=== PATIENT | female | born 1980 | race Caucasian/White ===

== ENCOUNTER 2016-10-05 00:21 | Emergency (ER) | payer OTHER ==
[2016-10-05 00:36] VITALS: BP 142/90
[2016-10-05] MEDS ORDERED: Clindamycin CAP* 150 MG PO ONE (00:52)
[2016-10-05] MEDS ORDERED: HYDROcodone/ACETAMIN 5-325 MG* 1 TAB PO ONE (00:53)
[2016-10-05] MEDS ORDERED: Lidocaine 2% JELLY* 10 ML JELLY TOPICAL ONE (00:54)
--- NOTE | 2016-10-05 01:01 | ED ---
Wong Monsivais Benjamin, scribed for Yulia Lott MD on 10/05/16 at 0049 . Throat Pain/Nasal Congestion - HPI Summary HPI Summary: 35yo female c/o left lip pain and swelling. Pt states its eating my face. Pt describes that there is an abscess in his left inner mouth. Pt denies any dental pain. Hx includes epilepsy, chronic migraines, and FHx of migraines. - History of Current Complaint Chief Complaint: EDRashSkinAbscess Time Seen by Provider: 10/05/16 00:38 Hx Obtained From: Patient Onset/Duration: Sudden Onset, Lasting Hours - 1 hour, Still Present Severity: Moderate Associated Signs And Symptoms: Positive: Negative - Allergies/Home Medications Allergies/Adverse Reactions: Allergies Allergy/AdvReac Type Severity Reaction Status Date / Time msg Allergy Headache Uncoded 02/22/15 18:40 PMH/Surg Hx/FS Hx/Imm Hx Endocrine/Hematology History: Denies: Hx Diabetes, Hx Thyroid Disease Cardiovascular History: Reports: Other Cardiovascular Problems/Disorders - HEART MURMUR Denies: Hx Congestive Heart Failure, Hx Hypertension Respiratory History: Denies: Hx Asthma, Hx Chronic Obstructive Pulmonary Disease (COPD) GI History: Denies: Hx Ulcer History: Denies: Hx Renal Disease Neurological History: Reports: Hx Migraine, Hx Seizures Psychiatric History: Reports: Hx Depression - Surgical History Surgery Procedure, Year, and Place: Removed a pin from throat. Infectious Disease History: No Infectious Disease History: Denies: Hx Clostridium Difficile, Hx Hepatitis, Hx Human Immunodeficiency Virus (HIV), Hx of Known/Suspected MRSA, Hx Shingles, Hx Tuberculosis, Hx Known/ Suspected VRE, Hx Known/Suspected VRSA, History Other Infectious Disease, Traveled Outside the [place] in Last 30 Days - Family History Known Family History: Positive: Cardiac Disease, Other - migrianes - Social History Occupation: Employed Full-time Lives: With Family Alcohol Use: Weekly Alcohol Amount: weekends Substance Use Type: Reports: Marijuana Substance Use Comment - Amount & Last Used: WEEKENDS Smoking Status (MU): Light Every Day Tobacco Smoker Type: Cigarettes Amount Used/How Often: 1/4 ppd Length of Time of Smoking/Using Tobacco: 10 years Have You Smoked in the Last Year: Yes Review of Systems Constitutional: Negative Eyes: Negative ENT: Other - lip pain and swelling Negative: Dental Pain Cardiovascular: Negative Respiratory: Negative Gastrointestinal: Negative Genitourinary: Negative Musculoskeletal: Negative Skin: Negative Neurological: Negative Psychological: Normal All Other Systems Reviewed And Are Negative: Yes Physical Exam Triage Information Reviewed: Yes Vital Signs On Initial Exam: Initial Vitals Temp Pulse Resp BP Pulse Ox 100.6 F 93 20 142/90 99 10/05/16 00:25 10/05/16 00:25 10/05/16 00:25 10/05/16 00:25 10/05/16 00:25 Vital Signs Reviewed: Yes Appearance: Positive: Well-Appearing, No Pain Distress, Well-Nourished Skin: Positive: Warm, Skin Color Reflects Adequate Perfusion, Dry Head/Face: Positive: Normal Head/Face Inspection Eyes: Positive: EOMI, INGRID ENT: Positive: Hearing grossly normal, Pharynx normal, TMs normal Neck: Positive: Supple, Nontender Respiratory/Lung Sounds: Positive: Clear to Auscultation, Breath Sounds Present. Negative: Rales, Rhonchi, Wheezes Cardiovascular: Positive: RRR. Negative: Murmur, Rub Abdomen Description: Positive: Nontender, Soft. Negative: Distended, Guarding Bowel Sounds: Positive: Present Musculoskeletal: Positive: Strength/ROM Intact. Negative: Edema Left, Edema Right Neurological: Positive: Sensory/Motor Intact, Alert, Oriented to Person Place, Time, CN Intact II-III Psychiatric: Positive: Affect/Mood Appropriate Diagnostics - Vital Signs Vital Signs Temp Pulse Resp BP Pulse Ox 10/05/16 00:25 100.6 F 93 20 142/90 99 - Laboratory Lab Statement: Any lab studies that have been ordered have been reviewed, and results considered in the medical decision making process. EENT Course/Dx - Course Assessment/Plan: 35 yo female with mild edema at corner of mouth with slight induration of about 2cm in circumference at this corner. No involvement of gums or oropharynx. Started clinda and gave her pain meds - Diagnoses Provider Diagnoses: Cellulitis Discharge - Discharge Plan Condition: Stable Disposition: HOME Prescriptions: Clindamycin CAP* [Cleocin 150 MG CAP*] 300 mg PO QID #26 cap Referrals: Freddie Freedman MD [Primary Care Provider] - The documentation as recorded by the Wong burnett Benjamin accurately reflects the service I personally performed and the decisions made by , Yulia Lott MD.
[2016-10-05] MEDS ORDERED: Lidocaine 2% JELLY* 6 ML JELLY TOPICAL ONE (01:03)
--- NOTE | 2016-10-05 09:40 | PN ---
Progress Note - Progress Note Note: Pharmacy called provider to double check on correct dosage of Clindamycin. Provider looked at documented note and Rx - written on explanation : prescription written for 300mg 4x daily until done. However, prescribed dosing was 150mg. Provider cancelled first order and re-ordered with correct mg and dosage following Dr. Lott's order.
== END 2016-10-05 01:14 | disposition home or self-care (01) ==
LOC: ED 00:21
DX: L03.211 Cellulitis of face (principal); F17.210 Nicotine dependence, cigarettes, uncomplicated; R01.1 Cardiac murmur, unspecified
CPT/HCPCS: 87070; 87205; 99282; A9270-GY

== ENCOUNTER 2016-12-05 12:07 | Emergency (ER) | payer OTHER ==
[2016-12-05] MEDS ORDERED: Aspirin Low Dose CHEW TAB* 81 MG PO ONE (15:27)
[2016-12-05 16:03] LABS: Hematocrit 41 % (35-47); Hemoglobin 13.7 g/dl (12.0-16.0); Mean Corpuscular HGB Conc 34 g/dl (31-36); Mean Corpuscular Hemoglobin 30 pg (27-31); Mean Corpuscular Volume 88 fL (80-97); Mean Platelet Volume 12 um3 (7.4-10.4); Red Blood Count 4.64 10^6/ul (4.0-5.4); Red Cell Distribution Width 13 % (10.5-15); White Blood Count 7.4 10^3/ul (3.5-10.8)
[2016-12-05 16:04] LABS: Add Diff/Slide Review? Slide Review Added; Comments Flag Yes
[2016-12-05 16:15] LABS: ALT 10 U/L (7-52); AST 14 U/L (13-39); Albumin 4.5 g/dL (3.2-5.2); Alkaline Phosphatase 47 U/L (34-104); Anion Gap 10 mmol/L (2-11); BUN/Creatinine Ratio 15.1 (8-20); Blood Urea Nitrogen 11 mg/dL (6-24); CO2 Carbon Dioxide 26 mmol/L (22-32); Calcium 9.4 mg/dL (8.6-10.3); Chloride 103 mmol/L (101-111); Creatine Kinase 73 U/L (10-223); EGFR African American 115.4 (>60); EGFR Non-African American 89.7 (>60); Globulin 2.3 g/dL (2-4); Glucose 78 mg/dL (70-100); Potassium 3.8 mmol/L (3.5-5.0); Sodium 139 mmol/L (133-145); Total Protein 6.8 g/dL (6.4-8.9)
[2016-12-05 16:45] LABS: TSH (Thyroid Stimulating Horm) 1.18 mcIU/mL (0.34-5.60)
[2016-12-05 16:51] LABS: Magnesium 2.2 mg/dL (1.9-2.7)
--- NOTE | 2016-12-05 16:51 | ED ---
HPI Chest Pain - HPI Summary HPI Summary: Patient arrives to ED with CC of left sided chest pain present while laying on left side. The pain is a stabbing, not worse with inspiration and intermittent. She admits to shoveling snow for several hours yesterday, but did not feel any discomfort yesterday. Today, she notes pain is 7/10 and is located under her left breast. Pain does not radiates. She denies back pain, abd pain , urinary symptoms, LONGORIA, diaphoresis or fever. Patient denies recent travel, OCP use, smoking history and is not immunocompromised. Denies family cardiac history. Pain is worse with laying down, better with sitting upright and not correlated with activity or exertion. Denies leg pain. - History of Current Complaint Chief Complaint: EDChestPainROMI Time Seen by Provider: 12/05/16 15:01 Hx Obtained From: Patient Onset/Duration: Started Hours Ago Timing: Intermittent Initial Severity: Moderate Current Severity: Moderate Pain Intensity: 2 Pain Scale Used: 0-10 Numeric Chest Pain Location: Left Anterior, Left Lateral Chest Pain Radiates: No Character: Crushing, Sharp/Stabbing Aggravating Factor(s): Position Alleviating Factor(s): Position Associated Signs and Symptoms: Positive: Chest Pain - Risk Factors Pulmonary Embolism Risk Factors: Negative TAD Risk Factors: Negative - Allergy/Home Medications Allergies/Adverse Reactions: Allergies Allergy/AdvReac Type Severity Reaction Status Date / Time msg Allergy Headache Uncoded 12/05/16 12:11 PMH/Surg Hx/FS Hx/Imm Hx Previously Healthy: Yes Endocrine/Hematology History: Denies: Hx Diabetes, Hx Thyroid Disease Cardiovascular History: Reports: Other Cardiovascular Problems/Disorders - HEART MURMUR Denies: Hx Congestive Heart Failure, Hx Hypertension Respiratory History: Denies: Hx Asthma, Hx Chronic Obstructive Pulmonary Disease (COPD) GI History: Denies: Hx Ulcer History: Denies: Hx Renal Disease Neurological History: Reports: Hx Migraine, Hx Seizures Psychiatric History: Reports: Hx Depression - Surgical History Surgery Procedure, Year, and Place: Removed a pin from throat. Infectious Disease History: No Infectious Disease History: Denies: Hx Clostridium Difficile, Hx Hepatitis, Hx Human Immunodeficiency Virus (HIV), Hx of Known/Suspected MRSA, Hx Shingles, Hx Tuberculosis, Hx Known/ Suspected VRE, Hx Known/Suspected VRSA, History Other Infectious Disease, Traveled Outside the [place] in Last 30 Days - Family History Known Family History: Positive: Cardiac Disease, Other - migrianes - Social History Occupation: Employed Full-time Lives: With Family Alcohol Use: Weekly Alcohol Amount: weekends Hx Substance Use: Yes Substance Use Type: Reports: Marijuana Substance Use Comment - Amount & Last Used: WEEKENDS Smoking Status (MU): Light Every Day Tobacco Smoker Type: Cigarettes Amount Used/How Often: 1/4 ppd Length of Time of Smoking/Using Tobacco: 10 years Have You Smoked in the Last Year: Yes Review of Systems Constitutional: Negative ENT: Negative Positive: Chest Pain - left sided anterior and lateral chest pain Respiratory: Negative Positive: no symptoms reported, see HPI Musculoskeletal: Negative Skin: Negative Neurological: Negative Psychological: Normal All Other Systems Reviewed And Are Negative: Yes Physical Exam Triage Information Reviewed: Yes Vital Signs On Initial Exam: Initial Vitals Temp Pulse Resp BP Pulse Ox 98.6 F 97 18 123/94 100 12/05/16 12:11 12/05/16 12:11 12/05/16 12:11 12/05/16 12:11 12/05/16 12:11 Vital Signs Reviewed: Yes Appearance: Positive: Well-Appearing, Well-Nourished Skin: Positive: Warm, Skin Color Reflects Adequate Perfusion Head/Face: Positive: Normal Head/Face Inspection Eyes: Positive: INGRID, Conjunctiva Clear Neck: Positive: Supple, No Lymphadenopathy Respiratory/Lung Sounds: Positive: Clear to Auscultation, Breath Sounds Present Cardiovascular: Positive: Normal, RRR Abdomen Description: Positive: Nontender Musculoskeletal: Positive: Normal, Strength/ROM Intact Neurological: Positive: Sensory/Motor Intact, Alert, Oriented to Person Place, Time Psychiatric: Positive: Normal AVPU Assessment: Alert Diagnostics - Vital Signs Vital Signs Temp Pulse Resp BP Pulse Ox 12/05/16 16:30 62 18 120/72 100 12/05/16 16:00 69 16 122/71 99 12/05/16 15:30 66 13 124/75 99 12/05/16 15:26 81 21 104/58 100 12/05/16 15:10 64 12/05/16 15:04 13 12/05/16 14:02 98.6 F 75 18 132/75 100 12/05/16 12:11 98.6 F 97 18 123/94 100 - Laboratory Lab Results: Lab Results 12/05/16 12/05/16 12/05/16 Range/Units 15:47 15:47 15:47 WBC 7.4 (3.5-10.8) 10^3/ul RBC 4.64 (4.0-5.4) 10^6/ul Hgb 13.7 (12.0-16.0) g/dl Hct 41 (35-47) % MCV 88 (80-97) fL MCH 30 (27-31) pg MCHC 34 (31-36) g/dl RDW 13 (10.5-15) % Plt Count 142 L (150-450) 10^3/ul MPV 12 H (7.4-10.4) um3 Neut % (Auto) 70.2 (38-83) % Lymph % (Auto) 22.1 L (25-47) % Hart % (Auto) 6.1 (1-9) % Eos % (Auto) 1.0 (0-6) % Baso % (Auto) 0.6 (0-2) % Absolute Neuts (auto) 5.2 (1.5-7.7) 10^3/ul Absolute Lymphs (auto) 1.6 (1.0-4.8) 10^3/ul Absolute Monos (auto) 0.4 (0-0.8) 10^3/ul Absolute Eos (auto) 0.1 (0-0.6) 10^3/ul Absolute Basos (auto) 0 (0-0.2) 10^3/ul Absolute Nucleated RBC 0.01 10^3/ul Nucleated RBC % 0.1 INR (Anticoag Therapy) 0.99 (0.89-1.11) APTT Pending Sodium 139 (133-145) mmol/L Potassium 3.8 (3.5-5.0) mmol/L Chloride 103 (101-111) mmol/L Carbon Dioxide 26 (22-32) mmol/L Anion Gap 10 (2-11) mmol/L BUN 11 (6-24) mg/dL Creatinine 0.73 (0.51-0.95) mg/dL Est GFR ( Amer) 115.4 (>60) Est GFR (Non-Af Amer) 89.7 (>60) BUN/Creatinine Ratio 15.1 (8-20) Glucose 78 (70-100) mg/dL Calcium 9.4 (8.6-10.3) mg/dL Magnesium Pending Total Bilirubin 0.50 (0.2-1.0) mg/dL AST 14 (13-39) U/L ALT 10 (7-52) U/L Alkaline Phosphatase 47 (34-104) U/L Total Creatine Kinase 73 (10-223) U/L CK-MB (CK-2) Pending Myoglobin Pending Troponin I 0.00 (<0.04) ng/mL Total Protein 6.8 (6.4-8.9) g/dL Albumin 4.5 (3.2-5.2) g/dL Globulin 2.3 (2-4) g/dL Albumin/Globulin Ratio 2.0 (1-3) TSH 1.18 (0.34-5.60) mcIU/mL Result Diagrams: 12/05/16 15:47 12/05/16 15:47 Lab Statement: Any lab studies that have been ordered have been reviewed, and results considered in the medical decision making process. Chest Pain Course/Dx - Course Course Of Treatment: Chest pain on left anterior and lateral side. Wells criteria low suspcian for PE. 0.13% chance. Not worse with inspiration. Afebrile. HR 70. Patient denies OCP use, travel, leg pain, smoking history or immunocompromised status. Trop negative. Chest xray negative. Labs WNL. Patient given Tylenol for relief of pain. test negative. Patient discharged home with return precautions. Ibuprofen as needed for any pain and inflammation. - Chest Pain Differential Diagnosis/HQI/PQRI: Acute NM, ACS, Angina, Chest Wall, Pulmonary Embolism - Diagnoses Provider Diagnoses: Costochondritis Discharge - Discharge Plan Condition: Stable Disposition: HOME Prescriptions: Meclizine TAB* [Antivert 12.5 TAB*] 12.5 mg PO TID #15 tab MDD 3 Patient Education Materials: Costochondritis (ED) Referrals: Freddie Freedman MD [Primary Care Provider] - Additional Instructions: Ibuprofen 600mg three times daily as needed for pain. Come back to ED if you develop racing heart, fever, worsening pain, shortness of breath.
[2016-12-05 18:15] VITALS: BP 115/61
--- NOTE | 2016-12-05 18:31 | RAD ---
Indication: Chest pain. Single frontal view of the chest performed at 1730 hours was reviewed. Comparison is made with previous exam dated June 24, 2013. No mediastinal shift is noted. Heart is of normal size and configuration. Lung lee appear clear. IMPRESSION: NO ACTIVE CARDIOPULMONARY DISEASE IS NOTED.
== END 2016-12-05 18:17 | disposition home or self-care (01) ==
LOC: ED 12:07
DX: R07.9 Chest pain, unspecified (principal); M94.0 Chondrocostal junction syndrome [Tietze]
CPT/HCPCS: 36415; 71010; 80053; 82550; 82553; 83735; 83874; 83880; 84443; 84484; 84702; 85025; 85610; 85730; 93005; 99283; A9270-GY

== ENCOUNTER 2017-09-02 18:00 | Emergency (ER) | payer OTHER ==
[2017-09-02 20:53] LABS: Urine Bilirubin Negative (Negative); Urine Glucose Negative (Negative); Urine Nitrite Negative (Negative)
[2017-09-02 20:58] LABS: Add Diff/Slide Review? Slide Review Added; Comments Flag Yes; Hematocrit 41 % (35-47); Hemoglobin 13.8 g/dl (12.0-16.0); Mean Corpuscular HGB Conc 34 g/dl (31-36); Mean Corpuscular Hemoglobin 30 pg (27-31); Mean Corpuscular Volume 88 fL (80-97); Mean Platelet Volume 13 um3 (7.4-10.4); Red Blood Count 4.65 10^6/ul (4.0-5.4); Red Cell Distribution Width 13 % (10.5-15); White Blood Count 6.8 10^3/ul (3.5-10.8)
[2017-09-02] MEDS ORDERED: NS 0.9% 1000 ML* 1,000 ML IV SCH (21:00)
[2017-09-02 21:06] LABS: ALT 13 U/L (7-52); AST 12 U/L (13-39); Albumin 4.4 g/dL (3.2-5.2); Alkaline Phosphatase 48 U/L (34-104); Anion Gap 7 mmol/L (2-11); BUN/Creatinine Ratio 12.5 (8-20); Blood Urea Nitrogen 10 mg/dL (6-24); CO2 Carbon Dioxide 26 mmol/L (22-32); Calcium 9.2 mg/dL (8.6-10.3); Chloride 106 mmol/L (101-111); EGFR African American 103.8 (>60); EGFR Non-African American 80.7 (>60); Globulin 2.3 g/dL (2-4); Glucose 87 mg/dL (70-100); Lipase 15 U/L (11.0-82.0); Magnesium 2.3 mg/dL (1.9-2.7); Potassium 3.7 mmol/L (3.5-5.0); Sodium 139 mmol/L (133-145); Total Protein 6.7 g/dL (6.4-8.9)
--- NOTE | 2017-09-02 22:00 | RAD ---
HISTORY: Right upper quadrant pain COMPARISONS: CT dated August 14, 2011 TECHNIQUE: Multiple transverse and longitudinal ultrasound images were obtained of the right upper quadrant of the abdomen using grayscale and color Doppler imaging. FINDINGS: LIVER: The liver is normal in shape, size, contour, and echogenicity. There are no focal parenchymal masses. There is normal hepatopedal flow of the portal vein on Doppler imaging. BILIARY TREE: There is no intrahepatic or extrahepatic biliary dilatation. The common duct measures 0.2 cm. GALLBLADDER: The gallbladder is incompletely distended. There is no cholelithiasis, gallbladder wall thickening, pericholecystic fluid, or sonographic Avina sign. PANCREAS: The head of the pancreas is unremarkable. The tail of the pancreas is not well visualized secondary to overlying bowel gas. RIGHT KIDNEY: The right kidney is normal in shape, size, contour, and echogenicity. There is no hydronephrosis or nephrolithiasis. The right kidney measures 9.7 x 4.1 x 5.3 cm. AORTA AND IVC: The aorta and IVC are unremarkable. FLUID: There are no pleural effusions. There is no free fluid within the hepatorenal recess. OTHER FINDINGS: None. IMPRESSION: NO ACUTE SONOGRAPHIC PATHOLOGY OF THE VISUALIZED PORTION OF THE ABDOMEN.
[2017-09-02] MEDS ORDERED: Ketorolac INJ* 30 MG/ML 1 ML VIAL IV PUSH ONE (23:14)
[2017-09-02] MEDS ORDERED: Iohexol 300* (CONTRAST) 10 ML SDV IV ONE (23:32)
--- NOTE | 2017-09-03 01:02 | ED ---
Iggy Monsivais Angela, scribed for Valentin Gray on 09/02/17 at 2027 . Abdominal Pain/Female - HPI Summary HPI Summary: This pt is a 36 y/o female presenting to [facility] [place]/o abd pain x3 weeks. Pt reports she was constipated for 4 days and now has been having diarrhea. She notes her pain is aggravated with eating, and additionally states having abdominal distension. Pt notes associated symptoms of nausea. She reports that for the last 1.5 weeks she has been waking up every day with abd pain. Pt describes the pain as a shooting pain radiating from her abd to her back. She denies fever, vomiting, chest pain, SOB. She denies any surgeries. Pt is a current every day tobacco smoker. PMHx includes epilepsy, chronic migraines, and heart murmur. - History of Current Complaint Chief Complaint: EDAbdPain Stated Complaint: ABD PAIN Time Seen by Provider: 09/02/17 20:23 Hx Obtained From: Patient Hx Last Menstrual Period: 12/29/15 Onset/Duration: Lasting Weeks, Still Present Timing: Weeks Severity Currently: Moderate Pain Intensity: 3 Pain Scale Used: 0-10 Numeric Location: Diffuse Radiates: Yes Radiates to: Back Allergies/Adverse Reactions: Allergies Allergy/AdvReac Type Severity Reaction Status Date / Time msg Allergy Headache Uncoded 12/05/16 12:11 PMH/Surg Hx/FS Hx/Imm Hx Endocrine/Hematology History: Denies: Hx Diabetes, Hx Thyroid Disease Cardiovascular History: Reports: Other Cardiovascular Problems/Disorders - HEART MURMUR Denies: Hx Congestive Heart Failure, Hx Hypertension Respiratory History: Denies: Hx Asthma, Hx Chronic Obstructive Pulmonary Disease (COPD) GI History: Denies: Hx Ulcer History: Denies: Hx Renal Disease Neurological History: Reports: Hx Migraine, Hx Seizures Psychiatric History: Reports: Hx Depression - Surgical History Surgery Procedure, Year, and Place: Removed a pin from throat. Infectious Disease History: No Infectious Disease History: Denies: Hx Clostridium Difficile, Hx Hepatitis, Hx Human Immunodeficiency Virus (HIV), Hx of Known/Suspected MRSA, Hx Shingles, Hx Tuberculosis, Hx Known/ Suspected VRE, Hx Known/Suspected VRSA, History Other Infectious Disease, Traveled Outside the [place] in Last 30 Days - Family History Known Family History: Positive: Cardiac Disease, Other - migrianes - Social History Alcohol Use: Weekly Alcohol Amount: weekends Hx Substance Use: Yes Substance Use Type: Reports: None, Marijuana Substance Use Comment - Amount & Last Used: WEEKENDS Smoking Status (MU): Light Every Day Tobacco Smoker Type: Cigarettes Amount Used/How Often: 1/4 ppd Length of Time of Smoking/Using Tobacco: 10 years Have You Smoked in the Last Year: Yes Review of Systems Negative: Fever, Chills Eyes: Negative ENT: Negative Cardiovascular: Negative Respiratory: Negative Gastrointestinal: Other - constipation, abd distension Positive: Abdominal Pain, Diarrhea, Nausea. Negative: Vomiting Musculoskeletal: Negative Skin: Negative Neurological: Negative All Other Systems Reviewed And Are Negative: Yes Physical Exam - Summary Physical Exam Summary: Appearance: Well appearing, no pain distress Skin: warm, dry, reflects adequate perfusion Head/face: normal Eyes: EOMI, INGRID ENT: normal Neck: supple, nontender Respiratory: CTA, breath sounds present Cardiovascular: RRR, pulses symmetrical Abdomen: soft, tenderness in the right and left lower quadrant. Tenderness in the left upper quadrant. Bowel: present Musculoskeletal: normal, strength/ROM intact Neuro: normal, sensory motor intact, A&Ox3 Triage Information Reviewed: Yes Vital Signs On Initial Exam: Initial Vitals Temp Pulse Resp BP Pulse Ox 98.6 F 48 18 147/93 93 09/02/17 18:01 09/02/17 18:01 09/02/17 18:01 09/02/17 18:01 09/02/17 18:01 Vital Signs Reviewed: Yes - Grey Coma Scale Coma Scale Total: 15 Diagnostics - Vital Signs Vital Signs Temp Pulse Resp BP Pulse Ox 09/02/17 19:38 98.4 F 82 16 125/88 99 09/02/17 18:01 98.6 F 48 18 147/93 93 - Laboratory Result Diagrams: 09/02/17 20:40 09/02/17 20:40 Lab Statement: Any lab studies that have been ordered have been reviewed, and results considered in the medical decision making process. - CT Abdomen/pelvis CT CT Interpretation: No Acute Changes - IMPRESSION: There is no bowel obstruction , free air, or free fluid. Normal appendix visualized. Negative for colitis or diverticulitis. Normal liver. No obvious gallbladder abnormalities. Normal spleen. Normal pancreas. Normal adrenal glands. Normal kidneys urinary tracts and urinary bladder. Overall no acute abnormalities. There is a large amount of stool in the colon. Dr. Gray has reviewed this radiology report. CT Interpretation Completed By: Radiologist - Ultrasound No standard instances Ultrasound Interpretation: No Acute Changes - Abdomen Ultrasound IMPRESSION: No acute sonographic pathology of the visualized portion of the abdomen. Dr. Gray has reviewed this radiology report. Ultrasound Interpretation Completed By: Radiologist Re-Evaluation - Re-Evaluation First Eval Re-Evaluation Time: 00:50 Comment: I reviewed the ultrasound and CT results with the pt. Abdominal Pain Fem Course/Dx - Course Course Of Treatment: Pt is a 36 y/o female who presents with abd pain x3 weeks, now with diarrhea and nausea. Lab work, CT abdomen/pelvis, and US abdomen were obtained. US abdomen is negative. CT of the abdomen/pelvis shows there is a large amount of stool in the colon. Pt will be discharged to home with a prescription for protonix. - Diagnoses Provider Diagnoses: Constipation, Abdominal pain Discharge - Discharge Plan Condition: Stable Disposition: HOME Prescriptions: Pantoprazole TAB (NF) [Protonix TAB (NF)] 40 mg PO DAILY #30 tab Patient Education Materials: Constipation (ED), Abdominal Pain (ED) Referrals: Eliza Malloy NP [Primary Care Provider] - Additional Instructions: Please follow up with your primary care provider in 3 days. RETURN TO THE ED FOR ANY WORSENING SYMPTOMS in 48 HOURS. The documentation as recorded by the Iggy burnett Angela accurately reflects the service I personally performed and the decisions made by , Valentin Gray.
[2017-09-03 01:15] VITALS: BP 102/54
--- NOTE | 2017-09-03 08:09 | RAD ---
Indication: Right-sided abdominal pain. Contrast: Administered 84.1 ml of OMNIPAQUE 300 mg/ml CT of the abdomen and pelvis was performed after oral and IV contrast. Coronal and sagittal reconstructed images were obtained Lung bases demonstrate no pleural fluid, nodules or masses. Heart is of normal size without evidence of pericardial effusion The liver is normal in size. No focal lesions or intrahepatic ductal dilatation. The gallbladder demonstrates no calcified gallstones. No pericholecystic fluid or wall thickening is noted. The spleen is normal in size. Pancreas demonstrates no mass or pancreatic ductal dilatation. Common duct is not dilated and no masses are noted. The kidneys demonstrate symmetric nephrograms without focal lesions or hydronephrosis. No dilated loops of bowel are noted. The uterus and ovaries are unremarkable. No hernias are noted. IMPRESSION: No abnormal masses or fluid collections are noted. No hernias are identified.
== END 2017-09-03 01:16 | disposition home or self-care (01) ==
LOC: ED 18:00
DX: K59.00 Constipation, unspecified (principal); R10.9 Unspecified abdominal pain; R19.7 Diarrhea, unspecified; R11.0 Nausea; F17.210 Nicotine dependence, cigarettes, uncomplicated
CPT/HCPCS: 36415; 74177; 76705; 80053; 81003; 83690; 83735; 84702; 85025; 86141; 96374; 99283; J1885; Q9967

== ENCOUNTER → 2019-01-12 13:14 | Emergency (ER) | payer OTHER ==
[~2019-01-12 13:14] MED LIST: NS 0.9% 1000 ML** 1,000 ML IV ONE; Ondansetron INJ* 2 MG/ML VIAL IV ONE
--- NOTE | 2019-01-12 13:28 | ED ---
Nausea/Vomiting/Diarrhea HPI - HPI Summary HPI Summary: Patient is a 38-year-old female who presents emergency department for diarrhea 5 days. Associated symptoms of abdominal cramping and nausea. Patient states 5 days ago she was having about 10 bowel movements a day and today and yesterday decreased to 3 bowel movements. She notes stools becoming slightly more formed. She denies passing blood. Denies fever, rash was has been, shortness of breath. She has no significant past medical history other than food allergies. Patient states she may have a history of IBS stating she has alternating diarrhea and constipation but diarrhea typically does not last long. Patient denies any recent travel, sick contacts, antibiotic use, hospitalization. Symptoms are moderate in severity. No current modifying factors. - History of Current Complaint Chief Complaint: EDNauseaVomitDiarrh Stated Complaint: DAY 5 OF DIARRHEA/VOMITING/FEVER Time Seen by Provider: 01/12/19 13:25 Hx Obtained From: Patient Hx Last Menstrual Period: 12/29/15 Pain Intensity: 0 - Allergies/Home Medications Allergies/Adverse Reactions: Allergies Allergy/AdvReac Type Severity Reaction Status Date / Time soy Allergy Severe Hives Verified 01/12/19 13:20 msg Allergy Severe Headache Uncoded 01/12/19 13:20 Home Medications: Home Medications NK [No Home Medications Reported] 01/12/19 [History Confirmed 01/12/19] PMH/Surg Hx/FS Hx/Imm Hx Previously Healthy: Yes Endocrine/Hematology History: Denies: Hx Diabetes, Hx Thyroid Disease Cardiovascular History: Reports: Other Cardiovascular Problems/Disorders - HEART MURMUR Denies: Hx Congestive Heart Failure, Hx Hypertension Respiratory History: Denies: Hx Asthma, Hx Chronic Obstructive Pulmonary Disease (COPD) GI History: Denies: Hx Ulcer History: Denies: Hx Dialysis, Hx Renal Disease Neurological History: Reports: Hx Migraine, Hx Seizures Psychiatric History: Reports: Hx Depression - Surgical History Surgery Procedure, Year, and Place: Removed a pin from throat. Infectious Disease History: No Infectious Disease History: Denies: Hx Clostridium Difficile, Hx Hepatitis, Hx Human Immunodeficiency Virus (HIV), Hx of Known/Suspected MRSA, Hx Shingles, Hx Tuberculosis, Hx Known/ Suspected VRE, Hx Known/Suspected VRSA, History Other Infectious Disease, Traveled Outside the [place] in Last 30 Days - Family History Known Family History: Positive: Cardiac Disease, Other - migrianes - Social History Occupation: Unemployed Lives: Alone Alcohol Use: Weekly Alcohol Amount: weekends Hx Substance Use: Yes Substance Use Type: Reports: None, Marijuana Substance Use Comment - Amount & Last Used: WEEKENDS Smoking Status (MU): Light Every Day Tobacco Smoker Type: Cigarettes Amount Used/How Often: 1/4 ppd Length of Time of Smoking/Using Tobacco: 10 years Have You Smoked in the Last Year: Yes Review of Systems Constitutional: Negative Eyes: Negative ENT: Negative Cardiovascular: Negative Respiratory: Negative Positive: Abdominal Pain, Diarrhea, Nausea Genitourinary: Negative Positive: Myalgia Skin: Negative Negative: Rash Neurological: Negative All Other Systems Reviewed And Are Negative: Yes Physical Exam Triage Information Reviewed: Yes Vital Signs On Initial Exam: Initial Vitals Temp Pulse Resp BP Pulse Ox 98.0 F 71 16 120/90 99 01/12/19 13:17 01/12/19 13:17 01/12/19 13:17 01/12/19 13:17 01/12/19 13:17 Vital Signs Reviewed: Yes Appearance: Positive: Well-Appearing - Pt. sitting up in bed in NAD. Skin: Positive: Warm, Dry Head/Face: Positive: Normal Head/Face Inspection Eyes: Positive: Normal, EOMI, INGRID Neck: Positive: Supple Respiratory/Lung Sounds: Positive: Clear to Auscultation, Breath Sounds Present Cardiovascular: Positive: Normal, RRR Abdomen Description: Positive: Other: - Abd. is soft with mild diffuse tenderness in all quadrants. No rebound tenderness or guarding. Neurological: Positive: Normal, CN Intact II-III Psychiatric: Positive: Affect/Mood Appropriate Diagnostics - Vital Signs Vital Signs Temp Pulse Resp BP Pulse Ox 01/12/19 13:17 98.0 F 71 16 120/90 99 - Laboratory Result Diagrams: 01/12/19 13:36 01/12/19 13:36 Lab Statement: Any lab studies that have been ordered have been reviewed, and results considered in the medical decision making process. Naus/Vom/Diarrhea Course/Dx - Course Course Of Treatment: Pt. presenting with diarrhea x 5 days. Benign abd. exam. Afebrile with stable VS. Pt. given IV fluids. Basic labs odered to check electrolytes. Labs are unremarkable. Suscept viral etiology but given pt.'s hx of intermittent diarrhea and constipation recommend GI referral for - Differential Dx/Diagnosis Differential Diagnoses - Female: Gastroenteritis (Viral), Gastroenteritis ( Bacterial), Diarrhea Provider Diagnosis: Acute diarrhea Condition At Discharge: Improved Discharge - Sign-Out/Discharge Documenting (check all that apply): Patient Departure Patient Received Moderate/Deep Sedation with Procedure: No - Discharge Plan Condition: Improved Disposition: HOME Patient Education Materials: Acute Diarrhea (ED) Referrals: Eliza Malloy NP [Primary Care Provider] - Additional Instructions: Schedule a follow up appointment with PCP if diarrhea persist Increase fluids Return to ER if symptoms change or worsen - Billing Disposition and Condition Condition: IMPROVED Disposition: Home
[2019-01-12 14:00] LABS: Hematocrit 43 % (33-41); Hemoglobin 14.6 g/dL (12.0-16.0); Mean Corpuscular HGB Conc 34 g/dL (31-36); Mean Corpuscular Hemoglobin 31 pg (27-31); Mean Corpuscular Volume 90 fL (80-97); Red Blood Count 4.79 10^6 /uL (3.70-4.87); Red Cell Distribution Width 13 % (10.5-15); White Blood Count 7.3 10^3/uL (3.5-10.8)
[2019-01-12 14:17] LABS: HCG Pregnancy < 0.60 mIU/mL
[2019-01-12 14:21] LABS: ALT 13 U/L (7-52); AST 16 U/L (13-39); Albumin 4.7 g/dL (3.2-5.2); Albumin/Globulin Ratio 2.1 (1-3); Alkaline Phosphatase 49 U/L (34-104); Anion Gap 8 mmol/L (2-11); BUN/Creatinine Ratio 10.8 (8-20); Blood Urea Nitrogen 9 mg/dL (6-24); CO2 Carbon Dioxide 26 mmol/L (22-32); Calcium 9.5 mg/dL (8.6-10.3); Chloride 106 mmol/L (101-111); EGFR African American 92.6 (>60); EGFR Non-African American 76.5 (>60); Globulin 2.2 g/dL (2-4); Glucose 119 mg/dL (70-100); Magnesium 2.3 mg/dL (1.9-2.7); Potassium 3.9 mmol/L (3.5-5.0); Sodium 140 mmol/L (135-145); Total Protein 6.9 g/dL (6.4-8.9)
[2019-01-12 15:09] LABS: ABS Basophils 0 10^3/ul (0-0.2); ABS Eosinophils 0.1 10^3/ul (0-0.6); ABS Lymphocytes 1.4 10^3/ul (1.0-4.8); ABS Monocytes 0.4 10^3/ul (0-0.8); ABS Neutrophils 5.5 10^3/ul (1.5-7.7); ABS Nucleated RBC 0 10^3/ul; Eosinophil % 1.2 %; Lymphocyte % 18.5 %; Mean Platelet Volume 12.2 fL (7.4-10.4); Nucleated Red Blood Cells % 0.1; Platelet Count 163 10^3/uL (150-450)
[2019-01-12 16:32] VITALS: BP 122/72
== END | disposition home or self-care (01) ==
LOC: ED 13:14
DX: R19.7 Diarrhea, unspecified (principal); R01.1 Cardiac murmur, unspecified; F32.9 Major depressive disorder, single episode, unspecified; G43.909 Migraine, unspecified, not intractable, without status migrainosus; F17.210 Nicotine dependence, cigarettes, uncomplicated
CPT/HCPCS: 36415; 80053; 83735; 84702; 85025; 96361; 96374; 99283; J2405

== ENCOUNTER 2019-03-16 18:55 | Emergency (ER) | payer OTHER ==
--- NOTE | 2019-03-16 20:26 | ED ---
Complex/Multi-Sys Presentation - HPI Summary HPI Summary: This pt is a 38 y/o female presenting to [facility] c/o exposure to copper acetate today. Nanci Murray was called at 19:27 at ambulance bay. Pt reports she works at an [employer] and today she was working in the office when they received boxes. 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 Pt notes she opened a box that contained a shark repellent life vest that looked "." Pt notes she opened it up and looked like there was "charcoal substance" and thought someone like an artist turned it into this. Pt then smelled the substance and reports "it seemed funny" and "it was definitely vinegar." She looked at her hands and they were covered in black powder. Pt went to the bathroom immediately and her nose began to burn. She washed and scrubbed her hands 3 times and reports once the black powder touched the water it turned into a blueish-indigo color and became very thick. Pt notes she had black and blue substance in her nose and it started to burn. She reports substance had contact with her face, nose, arms, and hands. She told her boss to research what the substance was and was told it was copper acetate. Pt notes she researched the chemical online and read if she didn't vomit she could get poisoning. She made herself vomit then. Her boss (Josué) drove the pt to the ED. Currently pt reports nausea. PMHx include chronic migraine, scoliosis, degenerative disc disease. - History Of Current Complaint Chief Complaint: EDChemNuclearExpose Time Seen by Provider: 03/16/19 19:36 Hx Obtained From: Patient Onset/Duration: Sudden Onset, Still Present Timing: Constant Severity Currently: Moderate Aggravating Factor(s): nothing Alleviating Factor(s): nothing Associated Signs And Symptoms: Positive: Nausea, Vomiting, Other - POSITIVE: copper acetate exposure to face, hands, arms - Allergies/Home Medications Allergies/Adverse Reactions: Allergies Allergy/AdvReac Type Severity Reaction Status Date / Time soy Allergy Severe Hives Verified 03/16/19 19:02 msg Allergy Severe Headache Uncoded 03/16/19 19:02 PMH/Surg Hx/FS Hx/Imm Hx Endocrine/Hematology History: Denies: Hx Diabetes, Hx Thyroid Disease Cardiovascular History: Reports: Other Cardiovascular Problems/Disorders - HEART MURMUR Denies: Hx Congestive Heart Failure, Hx Hypertension Respiratory History: Denies: Hx Asthma, Hx Chronic Obstructive Pulmonary Disease (COPD) GI History: Denies: Hx Ulcer History: Denies: Hx Dialysis, Hx Renal Disease Musculoskeletal History: Reports: Hx Scoliosis, Other Musculoskeletal History - Degenerative disc disease Neurological History: Reports: Hx Migraine - chronic, Hx Seizures Psychiatric History: Reports: Hx Depression - Surgical History Surgery Procedure, Year, and Place: Removed a pin from throat. Infectious Disease History: No Infectious Disease History: Denies: Hx Clostridium Difficile, Hx Hepatitis, Hx Human Immunodeficiency Virus (HIV), Hx of Known/Suspected MRSA, Hx Shingles, Hx Tuberculosis, Hx Known/ Suspected VRE, Hx Known/Suspected VRSA, History Other Infectious Disease, Traveled Outside the [place] in Last 30 Days - Family History Known Family History: Positive: Cardiac Disease, Other - migrianes - Social History Alcohol Use: Weekly Alcohol Amount: weekends Hx Substance Use: Yes Substance Use Type: Reports: None, Marijuana Substance Use Comment - Amount & Last Used: Smoking Status (MU): Light Every Day Tobacco Smoker Type: Cigarettes Amount Used/How Often: 1/4 ppd Length of Time of Smoking/Using Tobacco: 10 years Have You Smoked in the Last Year: Yes Review of Systems Positive: Fever ENT: Other - POS: facial exposure to copper acetate, nose burning Positive: Vomiting, Nausea Skin: Other - POSITIVE: copper acetate exposure to face, hands, arms All Other Systems Reviewed And Are Negative: Yes Physical Exam - Summary Physical Exam Summary: Appearance: Well-appearing, Well-nourished, lying in bed comfortably Skin: Warm, dry, no obvious rash Eyes: sclera anicteric, no conjunctival pallor ENT: mucous membranes moist, pharynx appears normal Neck: Supple, nontender Respiratory: Clear to auscultation, no signs of respiratory distress Cardiovascular: Normal S1, S2. No murmurs. Normal distal pulses in tibial and radial bilaterally. Abdomen: Soft, nontender, normal active bowel sounds present Musculoskeletal: Normal, Strength/ROM Intact Neurological: A&Ox3, awake and alert, mentation is normal, speech is fluent and appropriate Psychiatric: affect is normal, does not appear anxious or depressed Triage Information Reviewed: Yes Vital Signs On Initial Exam: Initial Vitals Temp Pulse Resp BP Pulse Ox 100.3 F 119 18 146/111 98 03/16/19 18:59 03/16/19 18:59 03/16/19 18:59 03/16/19 18:59 03/16/19 18:59 Vital Signs Reviewed: Yes Diagnostics - Vital Signs Vital Signs Temp Pulse Resp BP Pulse Ox 03/16/19 18:59 100.3 F 119 18 146/111 98 - Laboratory Lab Statement: Any lab studies that have been ordered have been reviewed, and results considered in the medical decision making process. Complex Multi-Symp Course/Dx Assessment/Plan: Pt is a 38 y/o female presenting to [facility] c/o exposure of copper acetate to face, nose, hands, and arms today. Nanci Murray was called at 19:27 at ambulance bay. Pt reports she works at an [employer] and today she was working in the office when they received boxes. She opened a box that contained a shark repellent life vest that turned out to have copper acetate. She c/o nose burning and nausea. Nurse contacted poison control and reported pt needs to be decontaminated. In the ED course the pt was given IV fluids, Zofran, Ativan. Pt will be discharged home with follow up from her PCP. Return to the ED precautions were given. - Diagnoses Provider Diagnoses: Exposure to chemical compounds - Physician Notifications Discussed Care Of Patient With: Poison control Time Discussed With Above Provider: 20:26 Instructed by Provider To: Other - Discussed with poison control who report they do not have any concerns of any terminal supervisor sequelae and decontamination is the treatment. Discharge - Sign-Out/Discharge Documenting (check all that apply): Patient Departure - Discharge home Patient Received Moderate/Deep Sedation with Procedure: No - Discharge Plan Condition: Good Disposition: HOME Patient Education Materials: Chemical Skin Burn (ED) Referrals: Eliza Malloy NP [Primary Care Provider] - Additional Instructions: We consulted with poison control about the exposure you had and they do not have any concerns of any terminal supervisor sequelae as a result. The local symptoms you suffered are typical, and treatment is decontamination (cleaning) and symptom control. - Billing Disposition and Condition Condition: GOOD Disposition: Home - Attestation Statements Document Initiated by Scribe: Yes Documenting Scribe: Irish Parkinson Provider For Whom Scribe is Documenting (Include Credential): Flako Dickerson MD Scribe Attestation: I, Irish Parkinson, scribed for Flako Dickerson MD on 03/17/19 at 0621. Scribe Documentation Reviewed: Yes Provider Attestation: The documentation as recorded by the Irish burnett accurately reflects the service I personally performed and the decisions made by me, Flako Dickerson MD Status of Jonas Document: Viewed
[2019-03-16] MEDS ORDERED: Ondansetron INJ* 2 MG/ML VIAL IV ONE (20:29)
[2019-03-16] MEDS ORDERED: NS 0.9% 1000 ML** 1,000 ML IV ONE ×2 (20:31→22:10)
[2019-03-16] MEDS ORDERED: LORazepam INJ* 2 MG/ML 1 ML VIAL IV PUSH ONE (20:31)
[2019-03-16] MEDS ORDERED: Lorazepam PYXIS KEY PRN (20:31)
[2019-03-16] MEDS ORDERED: Lorazepam PYXIS KEY ONE (20:33)
[2019-03-17 00:22] VITALS: BP 116/70
== END 2019-03-17 00:20 | disposition home or self-care (01) ==
LOC: ED 18:55
DX: Z77.098 Contact with and (suspected) exposure to other hazardous, chiefly nonmedicinal, chemicals (principal); F17.210 Nicotine dependence, cigarettes, uncomplicated; X58.XXXA Exposure to other specified factors, initial encounter; Y99.0 Civilian activity done for income or pay
CPT/HCPCS: 96361; 96374; 96375; 99283; J2060; J2405